=== PATIENT | female | born 1990 | race Caucasian/White ===

== ENCOUNTER 2020-06-18 04:41 | Outpatient (CLI) | payer BC, SELFPAY ==
--- NOTE | 2020-06-18 08:24 | DI.MRI_ITS ---
EXAM: MR BRAIN WO/W CLINICAL HISTORY: Continuous blepharaspasms with Hx of brain lesion.. TECHNIQUE: Multiplanar multisequence MRI of the brain was performed. CONTRAST MATERIAL: IV Contrast: 16 ML of Dotarem contrast administered. MR MRI - BRAIN W CONTRAST from 07/13/2014 FINDINGS: VENTRICLES AND EXTRA AXIAL SPACES: Normal in size and morphology for the patient's age. HEMORRHAGE: None. CEREBRAL PARENCHYMA: No focus of restricted diffusion to suggest acute infarct. No space-occupying le royal identified. MIDLINE SHIFT: None. BRAINSTEM/CEREBELLUM: Small area encephalomalacia in the inferomedial right cerebellum. CALVARIUM: Normal. ENHANCEMENT: No suspicious enhancement identified. Normal enhancement of the arterial and venous str uctures. VISUALIZED PARANASAL SINUSES/MASTOIDS: Clear. OTHER FINDINGS: Partially empty sella. Orbits are unremarkable. IMPRESSION: Old area of encephalomalacia in the inferomedial right cerebellar hemorrhage hemisphere. No new abno rmalities are identified. Incidental note is made of a partially empty sella. DATA REPOSITORY:
[2020-06-18] MEDS: Normal Saline Flush 10 ML SYR IVP (15:38)
[2020-06-18] MEDS: Gadoterate meglumine 20 ML VIAL 16 ML IVP (15:39)
== END 2020-06-18 05:01 ==
PROVIDERS: PCP Family Medicine; Visit Provider Nurse Practitioner Family
DX: G93.89 Other specified disorders of brain (principal)
CPT/HCPCS: 70553

== ENCOUNTER 2021-06-10 14:50 | Outpatient (REF) | payer BC, SELFPAY ==
[2021-06-10 13:24] LABS: Abs Immature Grans 0.01 10^3/uL (0.0-0.06); Absolute Basophil Count 0.03 10^3/uL (0.0-0.2); Absolute Eosinophil Count 0.03 10^3/uL (0.0-0.7); Absolute Lymphocyte Count 1.66 10^3/uL (1.2-3.4); Absolute Monocyte Count 0.41 10^3/uL (0.1-0.8); Absolute Neutrophil Count 4.84 10^3/uL (1.2-6.7); Basophils % 0.4; Eosinophils % 0.4; HCT 41.2 % (36.0-46.0); HGB 13.5 g/dL (11.2-15.7); Immature Grans % 0.1; Lymphocytes % 23.8; MCH 28.1 pg (27.0-33.0); MCHC 32.8 % (32.0-36.0); MCV 85.7 fL (80-95); MPV 10.7 fL (8.0-11.0); Monocytes % 5.9; Neutrophils % 69.4; Nucleated RBC 0 %; Platelet Count 215 10^3/uL (130-400); RBC 4.81 10^6/uL (3.93-5.22); RDW 13.8 % (11.7-14.6); RDW-SD 43.3 fL; WBC 6.98 10^3/uL (4.4-10.8)
[2021-06-10 13:26] LABS: ESR 6 mm/hr (0-20)
[2021-06-10 13:41] LABS: ALT 17 U/L (14-59); AST 14 U/L (15-37); Albumin 4.1 g/dL (3.4-5.0); Alkaline Phosphatase 74 U/L (46-116); Anion Gap 7.9 mmol/L (3-11); BUN 22 mg/dL (7-18); Bilirubin, Total 0.4 mg/dL (0.2-1.0); CO2 26.1 mmol/L (21.0-32.0); CREATININE 0.8 mg/dL (0.55-1.02); Calcium 9.3 mg/dL (8.5-10.1); Chloride 104 mmol/L (98-107); Glucose 91 mg/dL (74-106); Potassium 4.2 mmol/L (3.5-5.1); Sodium 138 mmol/L (136-145); TSH (W/Ref FT4) 1.54 uIU/mL (0.36-3.74); Total Protein 7.5 g/dL (6.4-8.2)
[2021-06-10 13:47] LABS: Bilirubin Negative (Negative); Blood Negative (Negative); Clarity Clear (Clear); Glucose Negative (Negative); Ketones Negative (Negative); Leukocyte Esterase Negative (Negative); Nitrite Negative (Negative); Specific Gravity 1.015 (1.005-1.025); Urobilinogen 0.2 EU/dL (Up TO 0.2)
[2021-06-13 14:32] LABS: ANA Interpretation Negative (Negative)
== END 2021-06-10 14:51 | disposition home or self-care (01) ==
LOC: LBN 14:50
PROVIDERS: PCP Nurse Practitioner Family; Visit Provider Physician Assistant
DX: I73.00 Raynaud's syndrome without gangrene (principal)
CPT/HCPCS: 80053; 85652; 81003; 84443; 85025; 86038

== ENCOUNTER 2022-07-04 16:49 | Outpatient (CLI) | payer BC, SELFPAY ==
--- NOTE | 2022-07-04 16:45 | RT.EKG_ITS ---
APPROVED REPORT Exam: Resting ECG Reason for Exam: bradycardia Patient Location: O HR:54 bpm ECG Measurements Heart Rate 54 AXIS DC 150 P 9 QRSd 108 QRS 48 QT 430 T 28 QTc 408 Conclusion Sinus rhythm...normal P axis, V-rate 50- 99 Normal Electrocardiogram
== END 2022-07-04 16:50 | disposition home or self-care (01) ==
LOC: DI.CM 20:22
PROVIDERS: PCP Nurse Practitioner Family; Visit Provider Nurse Practitioner Family
DX: R00.1 Bradycardia, unspecified (principal)
CPT/HCPCS: 93010

== ENCOUNTER 2022-07-04 17:50 | Outpatient (REF) | payer BC, SELFPAY ==
[2022-07-04 21:13] LABS: Absolute Basophil Count 0.03 10^3/uL (0.0-0.2); Absolute Eosinophil Count 0.05 10^3/uL (0.0-0.7); Absolute Monocyte Count 0.31 10^3/uL (0.1-0.8); Absolute Neutrophil Count 3.19 10^3/uL (1.2-6.7); Basophils % 0.6; Eosinophils % 0.9; HCT 38.8 % (36.0-46.0); Lymphocytes % 33.5; MCH 28.5 pg (27.0-33.0); MCHC 33.5 % (32.0-36.0); MCV 85 fL (80-95); MPV 11.2 fL (8.0-11.0); Monocytes % 5.8; Neutrophils % 59.2; Platelet Count 217 10^3/uL (130-400); RBC 4.56 10^6/uL (3.93-5.22); RDW 13.3 % (11.7-14.6); RDW-SD 41.1 fL; WBC 5.38 10^3/uL (4.4-10.8)
[2022-07-04 21:38] LABS: ALT 16 U/L (14-59); AST 18 U/L (15-37); Albumin 4.6 g/dL (3.4-5.0); Alkaline Phosphatase 64 U/L (46-116); Anion Gap 6.3 mmol/L (3-11); BUN 15 mg/dL (7-18); Bilirubin, Total 0.4 mg/dL (0.2-1.0); CO2 30.7 mmol/L (21.0-32.0); CREATININE 0.8 mg/dL (0.55-1.02); Calcium 9.6 mg/dL (8.5-10.1); Calculated LDL 105 mg/dL (<100); Chloride 102 mmol/L (98-107); Cholesterol 193 mg/dL (<200); Estimated GFR 100.96 (mL/min/1.73m2); Glucose 82 mg/dL (74-106); HDL Cholesterol 76 mg/dL (40-60); Sodium 139 mmol/L (136-145); TSH (W/Ref FT4) 2.38 uIU/mL (0.36-3.74); Total Protein 7.9 g/dL (6.4-8.2); Triglyceride 60 mg/dL (<150)
[2022-07-06 10:16] LABS: Lyme Ab w Rflx to Lyme Confirm Negative (Negative)
[2022-07-07 18:52] LABS: Anaplasma phagocytophilum Negative (Negative); B. miyamotoi PCR Negative (Negative); Babesia divergens/MO-1 Negative (Negative); Babesia duncani Negative (Negative); Babesia microti Negative (Negative); Ehrlichia chaffeensis Negative (Negative); Ehrlichia ewingii/canis Negative (Negative); Ehrlichia muris eauclairensis Negative (Negative)
== END 2022-07-04 17:51 | disposition home or self-care (01) ==
LOC: LBN 17:50
PROVIDERS: PCP Nurse Practitioner Family; Visit Provider Nurse Practitioner Family
DX: R00.1 Bradycardia, unspecified (principal); R03.0 Elevated blood-pressure reading, without diagnosis of hypertension; F41.8 Other specified anxiety disorders; K21.9 Gastro-esophageal reflux disease without esophagitis; Z13.220 Encounter for screening for lipoid disorders; Z11.8 Encounter for screening for other infectious and parasitic diseases
CPT/HCPCS: 80053; 80061; 87798; 84443; 85025; 86618